=== PATIENT | female | born 1980 | race Caucasian/White ===

== ENCOUNTER → 2016-09-22 | Emergency (ER) | payer OTHER ==
[~2016-09-22] VITALS: Ht 154.9 cm; Wt 52.2 kg
[~2016-09-22] MED LIST: BENTYL10 MG ORAL; CIPROFLOXACIN500 M2 ORAL; Ciprofloxacin 500mg tab ORAL ONE; FLAGYL500 MG ORAL; NITROFURANTOIN100 M2 ORAL; NKM; Norco 10mg/325mg tab ORAL ONE; PREDNISONE20 MG ORAL; TRAMADOL HCL50 MG ORAL; ZOFRAN ODT4 MG ORAL
[2016-09-22 14:13] VITALS: BP 143/93
[2016-09-22 14:17] LABS: APPEARANCE,URINE TURBID; KETONES,URINE NEGATIVE (NEGATIVE); LEUKOCYTE ESTERASE ,URINE 3+ (NEGATIVE); NITRITE,URINE POSITIVE (NEGATIVE); PH,URINE 9 (4.5-8.0); PROTEIN,URINE 3+ (NEGATIVE); UROBILINOGEN,URINE 12 MG/DL (0.0-1.0)
[2016-09-22 14:36] LABS: BACTERIA,URINE MANY /HPF; RBC,URINE TNTC /HPF (0 - 2); SQUAMOUS EPITHELIAL CELL,UR MODERATE /LPF (NONE/OCC); WBC,URINE 30-40 /HPF (0 - 2)
[2016-09-22 14:37] LABS: ICTOTEST POSITIVE
--- NOTE | 2016-09-22 15:29 | Emergency Room Report ---
History of Present Illness General Chief Complaint: Female Urogenital Problems Source: Patient Present Illness HPI Patient presents with complaints of suprapubic fullness and bloating sensation increased pain She also began seeing blood in her urine Patient had contacted her primary physician was going to place her on antibiotics however was not able to see her And presents here for evaluation Denies any fevers or chills Patient has some mild left flank discomfort Denies any chest pain or shortness of breath Denies any vomiting or diarrhea Allergies: Coded Allergies: ACETAMINOPHEN (Unverified Allergy, Unknown, 09/13/15) HYDROCODONE (Unverified Allergy, Unknown, 09/13/15) MORPHINE (Unverified Allergy, Unknown, 09/13/15) PENICILLINS (Unverified Allergy, Unknown, 03/23/16) Uncoded Allergies: PENACILLIN (Allergy, Unknown, 09/13/15) Patient History Past Medical History: see triage record Pertinent Family History: none Last Menstrual Period: 3 weeks ago Reviewed Nursing Documentation: PMH: Agreed, PSxH: Agreed Nursing Documentation-PMH Past Medical History: No Stated History Review of Systems All Other Systems: negative except mentioned in HPI Physical Exam Vital Signs Date Time Temp Pulse Resp B/P Pulse Ox O2 Delivery O2 Flow Rate FiO2 09/22/16 13:38 98.4 104 20 143/93 99 Room Air Sp02 EP Interpretation: reviewed, normal General Appearance: well appearing, no apparent distress Head: normocephalic, atraumatic Eyes: bilateral eye EOMI, bilateral eye PERRL ENT: hearing grossly normal, normal pharynx, TMs + canals normal, uvula midline Neck: full range of motion, supple, no meningismus, no bony tend Respiratory: lungs clear, normal breath sounds, no rhonchi, no respiratory distress, no retraction, no accessory muscle use Cardiovascular #1: normal peripheral pulses, regular rate, rhythm, no edema, no gallop, no JVD, no murmur Gastrointestinal: normal bowel sounds, soft, no mass, no organomegaly, non- distended, no guarding, no hernia, no pulsatile mass, no rebound, other - Mild discomfort in the suprapubic area Genitourinary: no CVA tenderness Neurologic: oriented x3, responsive, adult education manager III-XII nml as tested, motor strength/ tone normal, sensory intact Psychiatric: mood/affect normal Skin: normal color, no rash, warm/dry, palpation normal Lymphatic: normal inspection, no adenopathy Medical Decision Making Diagnostic Impression: Primary Impression: UTI (urinary tract infection) Additional Impression: Hematuria ER Course Multiple differentials are considered, including but not limited to pyelonephritis, hemorrhagic cystitis, fibroids, ovarian cyst Patient initially had ultrasound ordered However at this time does not want to have examination obtained I did discuss with her that we can miss significant pathology and diagnoses Patient's urine sample show significant infectious pathology Patient is provided with oral antibiotics Patient also has allergies to multiple medications, does report that with Zofran she is able to take Ada However after given this in the ER she does complain some increased nausea Patient will have further culturing of her urine and is recommended to follow closely with her primary physician Labs Test 09/22/16 13:48 Urine Color [place] Urine Appearance Turbid Urine pH 9 (4.5-8.0) Urine Specific [place] 1.015 (1.005-1.035) Urine Protein 3+ (NEGATIVE) Urine Glucose (UA) Negative (NEGATIVE) Urine Ketones Negative (NEGATIVE) Urine Occult Blood 5+ (NEGATIVE) Urine Nitrite Positive (NEGATIVE) Urine Bilirubin 3+ (NEGATIVE) Urine Ictotest Positive Urine Urobilinogen 12 MG/DL (0.0-1.0) Urine Leukocyte Esterase 3+ (NEGATIVE) Urine RBC Tntc /HPF (0 - 2) Urine WBC 30-40 /HPF (0 - 2) Urine Squamous Epithelial Cells Moderate /LPF (NONE/OCC) Urine Bacteria Many /HPF (NONE) Urine HCG, Qualitative Negative Last Vital Signs Date Time Temp Pulse Resp B/P Pulse Ox O2 Delivery O2 Flow Rate FiO2 09/22/16 14:13 98.4 104 20 143/93 99 Room Air Status: improved Disposition: HOME, SELF-CARE Condition: Improved Scripts Ondansetron Odt* (ZOFRAN ODT*) 4 Mg Tab.rapdis 4 MG ORAL Q6H Y for Nausea & Vomiting, #10 TAB 0 Refills Prov: HARRISON ROBERTSON.O. 09/22/16 Tramadol Hcl* (ULTRAM*) 50 Mg Tablet 50 MG ORAL Q6H Y for For Pain, #20 TAB 0 Refills Prov: HARRISON ROBERTSON.O. 09/22/16 Ciprofloxacin Hcl* (CIPROFLOXACIN HCL*) 500 Mg Tablet 500 MG ORAL Q12H, #14 TAB 0 Refills Prov: HARRISON ROBERTSON D.O. 09/22/16 Referrals: Rene PUTNAM,REFERRING (PCP) Additional Instructions: Patient is provided with the discharge instructions notified to follow up with primary doctor in the next 2-3 days otherwise return to the er with any worsening symptoms. Please note that this report is being documented using DRAGON technology. This can lead to erroneous entry secondary to incorrect interpretation by the dictating instrument. HARRISON ROBERTSON D.O. Sep 22, 2016 15:28
[2016-09-22 16:03] VITALS: BP 143/93
== END | disposition home or self-care (01) ==
LOC: EMR 15:03
DX: N39.0 Urinary tract infection, site not specified (principal); R31.9 Hematuria, unspecified; Z88.0 Allergy status to penicillin; Z88.6 Allergy status to analgesic agent
CPT/HCPCS: 81003; 81025; 87086; 87181; 99284

== ENCOUNTER 2017-11-06 23:21 | Emergency (ER) | payer OTHER ==
[~2017-11-06] VITALS: Ht 165.1 cm; Wt 52.2 kg
[~2017-11-06 23:21] MED LIST changes: -Ciprofloxacin 500mg tab ORAL ONE; -Norco 10mg/325mg tab ORAL ONE
[2017-11-06 23:58] LABS: APPEARANCE,URINE SLIGHTLY CLOUDY; BILIRUBIN, URINE NEGATIVE (NEGATIVE); GLUCOSE, URINE (UA) NEGATIVE (NEGATIVE); KETONES,URINE 3+ (NEGATIVE); LEUKOCYTE ESTERASE ,URINE 1+ (NEGATIVE); NITRITE,URINE NEGATIVE (NEGATIVE); PH,URINE 6 (4.5-8.0); PROTEIN,URINE 2+ (NEGATIVE); UROBILINOGEN,URINE NORMAL MG/DL (0.0-1.0)
[2017-11-07] MEDS ORDERED: Ketorolac 60mg Inj IM ONE
[2017-11-07] MEDS ORDERED: HYDROcodone/Acetamin 10/325 tab ORAL ONE
[2017-11-07 00:14] LABS: COLOR,URINE YELLOW
[2017-11-07 00:17] VITALS: BP 0/0
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
== END 2017-11-07 00:17 | disposition left against medical advice (07) ==
LOC: EDUNIT# 23:21 → EDBD 23:21 → EMR 23:55
DX: M54.5 Low back pain (principal); Z88.0 Allergy status to penicillin
CPT/HCPCS: 81003; 81025; 99282